=== PATIENT | female | born 1980 | race Two or more races ===

== ENCOUNTER 2017-04-07 08:12 | Emergency (ER) | payer MEDICAID ==
[~2017-04-07] VITALS: Ht 152.4 cm; Wt 61.2 kg
[2017-04-07 08:26] VITALS: BP 134/99
--- NOTE | 2017-04-07 08:38 | Emergency Room Report ---
History of Present Illness General Chief Complaint: Dyspnea/Respdistress Source: Patient Present Illness HPI Patient presents with complaints of right-sided lower chest pain Patient has a pleuritic component to this Is also pain to the right lower back just below the scapular region Patient poor several days ago after eating some food that she saw hair in, she had become nauseated and vomited she vomited several times Denies any diarrhea Denies any obvious cough Denies any dysuria frequency Pain is 8/10 localized to the right upper flank region Denies any fall or trauma denies any dysuria frequency Allergies: Coded Allergies: ASPIRIN (Verified Allergy, Unknown, 04/07/17) Patient History Past Medical History: see triage record Pertinent Family History: none Last Menstrual Period: IUD spotting Now: No Reviewed Nursing Documentation: PMH: Agreed, PSxH: Agreed Nursing Documentation-PMH Past Medical History: No Stated History Review of Systems All Other Systems: negative except mentioned in HPI Physical Exam Vital Signs Date Time Temp Pulse Resp B/P Pulse Ox O2 Delivery O2 Flow Rate FiO2 04/07/17 08:16 99.0 117 20 121/81 96 Room Air Sp02 EP Interpretation: reviewed, normal General Appearance: mild distress - Appears anxious Head: normocephalic, atraumatic Eyes: bilateral eye EOMI, bilateral eye PERRL ENT: hearing grossly normal, normal pharynx, TMs + canals normal, uvula midline Neck: full range of motion, supple, no meningismus, no bony tend Respiratory: lungs clear, normal breath sounds, no rhonchi, no respiratory distress, no retraction, no accessory muscle use Cardiovascular #1: normal peripheral pulses, no edema, no gallop, no JVD, no murmur, tachycardia Gastrointestinal: normal bowel sounds, non tender, soft, no mass, no organomegaly, non-distended, no guarding, no hernia, no pulsatile mass, no rebound Genitourinary: no CVA tenderness Musculoskeletal: normal inspection Neurologic: oriented x3, responsive, 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, motor strength/ tone normal, sensory intact Psychiatric: mood/affect normal Skin: normal color, no rash, warm/dry, palpation normal Lymphatic: normal inspection, no adenopathy Medical Decision Making Diagnostic Impression: Primary Impression: Pleurisy Additional Impression: Flank pain ER Course Patient is a fairly complex patient with multiple differential to consideration including but not limited to cardiac cardiopulmonary and vascular emergencies Given the patient's presentation complaints Blood work and imaging was initiated There is consideration for pleuritic discomfort alongside referred pain and peritoneal-type complaints Patient's blood work is appropriate, d-dimer was mildly elevated therefore CT imaging was initiated ED chest was negative CT abdomen and pelvis was also negative patient has done significantly better heart rate at this time has stabilized Patient observed for multiple hours in the emergency room continues to do better in a stable for close outpatient followup Labs reviewed CBC normal Chemistry normal D-dimer elevated at over 600 Coagulation to be negative UA 5 red blood cells Rhythm Strip Diag. Results EP Interpretation: yes Rate: 110 Rhythm: no PVC's, no ectopy, other - sinus tach Chest X-Ray Diagnostic Results EP Interpretation: Yes Findings: no consolidation, no effusion, no pneumothorax Number of Views: 1 CT/MRI/US Diagnostic Results CT/MRI/US Diagnostic Results : Impression CT chest no acute disease CT abdomen pelvis no acute disease Last Vital Signs Date Time Temp Pulse Resp B/P Pulse Ox O2 Delivery O2 Flow Rate FiO2 04/07/17 08:26 90 15 Room Air 04/07/17 08:26 134/99 97 04/07/17 08:16 99.0 Status: improved Disposition: HOME, SELF-CARE Condition: Improved Scripts Acetaminophen With Codeine (T#3) (TYLENOL #3 TAB*) Y Tab 1 TAB ORAL Q8H Y for For Pain, #12 TAB Prov: BRANNON COPPOLA D.O. 04/07/17 Ondansetron Odt* (ZOFRAN ODT*) 4 Mg Tab.rapdis 4 MG ORAL Q6H Y for Nausea & Vomiting, #12 TAB 0 Refills Prov: BRANNON COPPOLA D.O. 04/07/17 Referrals: NOT CHOSEN [facility]/,REFERRING (PCP) Additional Instructions: Patient is provided with the discharge instructions notified to follow up with primary doctor in the next 2-3 days otherwise return to the er with any worsening symptoms. Please note that this report is being documented using Lift technology. This can lead to erroneous entry secondary to incorrect interpretation by the dictating instrument. BRANNON COPPOLA D.O. Apr 07, 2017 08:38
[2017-04-07] MEDS ORDERED: Ketorolac 30mg Inj IV ONE (08:45)
[2017-04-07 09:24] LABS: TROPONIN I < 0.30 ng/mL (<=0.30)
[2017-04-07 09:28] LABS: ALANINE AMINOTRANSFERASE 16 U/L (3-33); ALBUMIN/GLOBULIN RATIO 1.4 (1.0-2.7); ANION GAP 15 (5-15); ASPARTATE AMINO TRANSFERASE 15 U/L (5-40); CALCIUM 8.9 mg/dL (8.6-10.2); CARBON DIOXIDE 23 mEQ/L (20-30); CHLORIDE 99 mEQ/L (98-107); CREATININE 0.7 mg/dL (0.5-0.9); GLOMERULAR FILTRATION RATE > 60 mL/min (>60); HEMOLYSIS 17; LIPASE 17 U/L (< 60); SODIUM 137 mEQ/L (135-145); TOTAL PROTEIN 7.2 g/dL (6.6-8.7)
[2017-04-07 09:30] LABS: APPEARANCE,URINE CLEAR; KETONES,URINE NEGATIVE (NEGATIVE); LEUKOCYTE ESTERASE ,URINE NEGATIVE (NEGATIVE); NITRITE,URINE NEGATIVE (NEGATIVE); PH,URINE 5 (4.5-8.0); PROTEIN,URINE NEGATIVE (NEGATIVE); UROBILINOGEN,URINE NORMAL MG/DL (0.0-1.0)
[2017-04-07 09:38] LABS: CKMB < 1.5 ng/mL (< 3.8)
[2017-04-07 09:43] LABS: BASOPHILS % (AUTO) 0.2 % (0.0-2.0); EOSINOPHILS % (AUTO) 0.3 % (0.0-3.0); LYMPHOCYTES % (AUTO) 11.3 % (20.0-45.0); MEAN CORPUSCULAR HEMOGLOBIN 31.7 PG (27.0-31.0); MEAN CORPUSCULAR HGB CONC 33.9 G/DL (32.0-36.0); MEAN CORPUSCULAR VOLUME 94 FL (80-99); MEAN PLATELET VOLUME 6.6 FL (6.5-10.1); MONOCYTES % (AUTO) 5.1 % (1.0-10.0); NEUTROPHILS % (AUTO) 83.1 % (45.0-75.0); PLATELET COUNT 235 K/UL (150-450); RED CELL DISTRIBUTION WIDTH 11.9 % (11.6-14.8); WHITE BLOOD COUNT 8.3 K/UL (4.8-10.8)
[2017-04-07 09:45] LABS: SQUAMOUS EPITHELIAL CELL,UR OCCASIONAL /LPF (NONE/OCC); WBC,URINE 0 /HPF (0 - 2)
[2017-04-07 10:22] VITALS: BP 117/81
[2017-04-07] MEDS ORDERED: Morphine Sulfate 4mg/ml Inj IVP ONE (10:45)
--- NOTE | 2017-04-07 11:17 | Diagnostic Imaging Report ---
Indication: Chest pain Technique: Continuous helical transaxial imaging of the chest was obtained from the thoracic inlet to the upper abdomen during rapid intravenous contrast administration. Arterial phase of enhancement obtained. Coronal 2-D reformats were also obtained and maximum intensity projection images in multiple planes. Study obtained in a Siemens sensation [address] Total Dose length Product (DLP): [address] Dose Index Volume (CTDIvol): 13, 13, 29, 14 mGy Comparison: None Findings: The pulmonary artery is well opacified and shows no filling defects. The lungs are clear. There is no adenopathy, pleural or pericardial effusions are identified. The aortic dissection or aneurysm identified within the chest. Visualized part of the upper abdomen is unremarkable. Impression: Negative CTA of the chest The CT scanner at [facility] is accredited by the [employer] and the scans are performed using dose optimization techniques as appropriate to a performed exam including Automatic Exposure control.
--- NOTE | 2017-04-07 11:24 | Diagnostic Imaging Report ---
Indication: Abdominal pain Technique: Continuous helical transaxial imaging of the abdomen and pelvis was obtained from the lung bases to the pubic symphysis during intravenous contrast administration. Coronal 2-D reformats were also obtained. Study obtained in a Siemens sensation [address] Total Dose length Product (DLP): Refer CTA mGycm CT Dose Index Volume (CTDIvol): Refer CTA mGy Comparison: None Findings: The liver, spleen, pancreas, kidneys and adrenal glands, gallbladder appear unremarkable. There is no hydronephrosis. At the time of the scan contrast is excreted within the collecting systems. This precludes identification of any small stones that may be nonobstructive within the collecting system. Intrauterine device is present. The urinary bladder is unremarkable. There is a small amount of free fluid in the pelvis. The appendix is seen and appears normal. Impression: No acute findings in the abdomen or pelvis. Intrauterine device The CT scanner at [facility] is accredited by the [employer] and the scans are performed using dose optimization techniques as appropriate to a performed exam including Automatic Exposure control.
[2017-04-07 11:37] VITALS: BP 115/78
--- NOTE | 2017-04-07 11:55 | Diagnostic Imaging Report ---
Indication: Chest Pain Comparison: None A single view chest radiograph was obtained. Findings: Cardiomediastinal appearance is within normal limits for age. Pulmonary vascularity is appropriate. The diaphragmatic contour is smooth and costophrenic angles are sharp. No pleural effusions are identified. The bones are unremarkable. Impression: No acute findings
[2017-04-07] MEDS ORDERED: ZOFRAN ODT4 MG ORAL (12:13)
[2017-04-07] MEDS ORDERED: ACETAMINOPHEN-1 EAC1 ORAL (12:13)
[2017-04-07 12:20] VITALS: BP 115/70
== END 2017-04-07 12:20 | disposition home or self-care (01) ==
LOC: EMR 08:30
DX: R07.9 Chest pain, unspecified (principal); M54.5 Low back pain; Z88.0 Allergy status to penicillin; Z97.5 Presence of (intrauterine) contraceptive device
CPT/HCPCS: 36415; 71010; 71275; 74177; 80053; 81003; 81025; 82550; 82553; 83690; 84484; 85025; 85379; 93005; 96360; 96361; 96374; 96375; 99284; J1885; J2270; J2405; Q9967

== ENCOUNTER 2017-08-19 05:54 | Emergency (ER) | payer MEDICAID, OTHER ==
[~2017-08-19] VITALS: Ht 152.4 cm; Wt 61.2 kg
[~2017-08-19 05:54] MED LIST: ACETAMINOPHEN-1 EAC1 ORAL; ZOFRAN ODT4 MG ORAL
[2017-08-19 06:39] LABS: BASOPHILS % (AUTO) 0.9 % (0.0-2.0); EOSINOPHILS % (AUTO) 1.4 % (0.0-3.0); KETONES,URINE NEGATIVE (NEGATIVE); LEUKOCYTE ESTERASE ,URINE 1+ (NEGATIVE); LYMPHOCYTES % (AUTO) 43.1 % (20.0-45.0); MEAN CORPUSCULAR HEMOGLOBIN 32.7 PG (27.0-31.0); MEAN CORPUSCULAR HGB CONC 33.9 G/DL (32.0-36.0); MEAN CORPUSCULAR VOLUME 96 FL (80-99); MEAN PLATELET VOLUME 7.4 FL (6.5-10.1); MONOCYTES % (AUTO) 7.5 % (1.0-10.0); NEUTROPHILS % (AUTO) 47.2 % (45.0-75.0); NITRITE,URINE NEGATIVE (NEGATIVE); PH,URINE 6 (4.5-8.0); PLATELET COUNT 275 K/UL (150-450); PROTEIN,URINE NEGATIVE (NEGATIVE); RED BLOOD COUNT 4.77 M/UL (4.20-5.40); RED CELL DISTRIBUTION WIDTH 11.4 % (11.6-14.8); UROBILINOGEN,URINE NORMAL MG/DL (0.0-1.0); WHITE BLOOD COUNT 8.4 K/UL (4.8-10.8)
[2017-08-19 06:45] LABS: APPEARANCE,URINE CLEAR; BACTERIA,URINE FEW /HPF; RBC,URINE 0-2 /HPF (0 - 2); SQUAMOUS EPITHELIAL CELL,UR FEW /LPF (NONE/OCC); WBC,URINE 0-2 /HPF (0 - 2)
[2017-08-19] MEDS ORDERED: Morphine Sulfate 2mg/ml Inj IVP ONE (06:45)
[2017-08-19 06:57] LABS: ALANINE AMINOTRANSFERASE 20 U/L (12-78); ALBUMIN/GLOBULIN RATIO 1.2 (1.0-2.7); ANION GAP 8 (5-15); ASPARTATE AMINO TRANSFERASE 11 U/L (15-37); CALCIUM 9.5 MG/DL (8.5-10.1); CARBON DIOXIDE 25 MMOL/L (21-32); CHLORIDE 101 MMOL/L (98-107); CREATININE 0.7 MG/DL (0.55-1.30); GLOMERULAR FILTRATION RATE > 60 mL/min (>60); LIPASE 140 U/L (73-393); SODIUM 134 MMOL/L (136-145); TOTAL PROTEIN 7.7 G/DL (6.4-8.2)
[2017-08-19 07:07] VITALS: BP 119/82
--- NOTE | 2017-08-19 07:32 | Emergency Room Report ---
History of Present Illness General Chief Complaint: Abdominal Pain Source: Patient Present Illness HPI 37-year-old female presents ED complaining of abdominal pain started approximately one hour prior to arrival. Sudden onset. 10 out of 10, sharp, nonradiating. Localized to lower abdomen. Patient has history of ovarian cysts and states this feels very similar to her previous pain. Denies vaginal bleeding or discharge. No other aggravating relieving factors. Denies any other associated symptoms Allergies: Coded Allergies: ASPIRIN (Verified Allergy, Unknown, 04/07/17) Patient History Past Medical History: none Past Surgical History: none Pertinent Family History: none Social History: Denies: smoking, alcohol use, drug use Last Menstrual Period: 08/02/17 Now: No - IUD : 4 Para: 3 Immunizations: UTD Reviewed Nursing Documentation: PMH: Agreed, PSxH: Agreed Nursing Documentation-PMH Past Medical History: No Stated History Review of Systems All Other Systems: negative except mentioned in HPI Physical Exam Vital Signs Date Time Temp Pulse Resp B/P (MAP) Pulse Ox O2 Delivery O2 Flow Rate FiO2 08/19/17 06:10 98.1 84 18 122/86 100 Room Air Sp02 EP Interpretation: reviewed, normal General Appearance: no apparent distress, alert, GCS 15, non-toxic Head: normocephalic, atraumatic Eyes: bilateral eye normal inspection, bilateral eye PERRL ENT: hearing grossly normal, normal pharynx, no angioedema, normal voice Neck: full range of motion, supple/symm/no masses Respiratory: chest non-tender, lungs clear, normal breath sounds, speaking full sentences Cardiovascular #1: regular rate, rhythm, no edema Cardiovascular #2: 2+ carotid (R), 2+ carotid (L), 2+ radial (R), 2+ radial (L) , 2+ dorsalis pedis (R), 2+ dorsalis pedis (L) Gastrointestinal: normal bowel sounds, soft, non-distended, no guarding, no rebound, tenderness - suprapubic Rectal: deferred Genitourinary: normal inspection, no CVA tenderness Musculoskeletal: back normal, gait/station normal, normal range of motion, non- tender Neurologic: alert, oriented x3, responsive, motor strength/tone normal, sensory intact, speech normal Psychiatric: judgement/insight normal, memory normal, mood/affect normal, no suicidal/homicidal ideation Reflexes: 3+ bicep (R), 3+ bicep (L), 3+ tricep (R), 3+ tricep (L), 3+ knee (R) , 3+ knee (L) Skin: normal color, no rash, warm/dry, well hydrated Lymphatic: no adenopathy Medical Decision Making Diagnostic Impression: Primary Impression: Ovarian cyst Qualified Codes: N83.201 - Unspecified ovarian cyst, right side ER Course Hospital Course 37-year-old F presents to ED with lower abdominal pain Differential diagnosis includes- cystitis, UTI, constipation, ovarian cyst/ torsion Clinical course Patient placed on stretcher. After initial history and physical I ordered labs , IV fluids, Pelvic US Labs - no leukocytosis, electrolytes ok, LFTs normal, UA unremarkable Pelvic US - R ovarian cyst, minimal free fluid. good flow to ovary noted on reassessment pain is improved. Patient can be safely discharged to home at this time I feel this is a highly complex case requiring extensive working including EKG/ Rhythm strip, Xray/CT/US, Blood/urine lab work, repeat exams while in ED, and administration of strong opiates/narcotics for pain control, admission to hospital or close patient follow up. Diagnosis - ovarian cyst Stable and discharged to home with Rx Motrin, Alexander. Followup with PMD. Return to ED if symptoms recur or worsen Labs Test 08/19/17 06:17 White Blood Count 8.4 K/UL (4.8-10.8) Red Blood Count 4.77 M/UL (4.20-5.40) Hemoglobin 15.6 G/DL (12.0-16.0) Hematocrit 46.0 % (37.0-47.0) Mean Corpuscular Volume 96 FL (80-99) Mean Corpuscular Hemoglobin 32.7 PG (27.0-31.0) Mean Corpuscular Hemoglobin Concent 33.9 G/DL (32.0-36.0) Red Cell Distribution Width 11.4 % (11.6-14.8) Platelet Count 275 K/UL (150-450) Mean Platelet Volume 7.4 FL (6.5-10.1) Neutrophils (%) (Auto) 47.2 % (45.0-75.0) Lymphocytes (%) (Auto) 43.1 % (20.0-45.0) Monocytes (%) (Auto) 7.5 % (1.0-10.0) Eosinophils (%) (Auto) 1.4 % (0.0-3.0) Basophils (%) (Auto) 0.9 % (0.0-2.0) Urine Color Pale yellow Urine Appearance Clear Urine pH 6 (4.5-8.0) Urine Specific [place] 1.025 (1.005-1.035) Urine Protein Negative (NEGATIVE) Urine Glucose (UA) Negative (NEGATIVE) Urine Ketones Negative (NEGATIVE) Urine Occult Blood 1+ (NEGATIVE) Urine Nitrite Negative (NEGATIVE) Urine Bilirubin Negative (NEGATIVE) Urine Urobilinogen Normal MG/DL (0.0-1.0) Urine Leukocyte Esterase 1+ (NEGATIVE) Urine RBC 0-2 /HPF (0 - 2) Urine WBC 0-2 /HPF (0 - 2) Urine Squamous Epithelial Cells Few /LPF (NONE/OCC) Urine Bacteria Few /HPF (NONE) Urine HCG, Qualitative Negative Sodium Level 134 MMOL/L (136-145) Potassium Level 4.0 MMOL/L (3.5-5.1) Chloride Level 101 MMOL/L (98-107) Carbon Dioxide Level 25 MMOL/L (21-32) Anion Gap 8 (5-15) Blood Urea Nitrogen 12 mg/dL (7-18) Creatinine 0.7 MG/DL (0.55-1.30) Estimat Glomerular Filtration Rate > 60 mL/min (>60) Glucose Level 96 MG/DL (74-106) Calcium Level 9.5 MG/DL (8.5-10.1) Total Bilirubin 0.3 MG/DL (0.2-1.0) Aspartate Amino Transf (AST/SGOT) 11 U/L (15-37) Alanine Aminotransferase (ALT/SGPT) 20 U/L (12-78) Alkaline Phosphatase 50 U/L (46-116) Total Protein 7.7 G/DL (6.4-8.2) Albumin 4.2 G/DL (3.4-5.0) Globulin 3.5 g/dL Albumin/Globulin Ratio 1.2 (1.0-2.7) Lipase 140 U/L (73-393) CT/MRI/US Diagnostic Results CT/MRI/US Diagnostic Results : Imaging Test Ordered: Pelvic US Impression R ovarian cyst, minimal free fluid Last Vital Signs Date Time Temp Pulse Resp B/P (MAP) Pulse Ox O2 Delivery O2 Flow Rate FiO2 08/19/17 07:07 98.0 74 22 119/82 99 Room Air Status: improved Disposition: HOME, SELF-CARE Condition: Stable Scripts Hydrocodone Bit/Acetaminophen 5-325* (NORCO 5-325*) 1 Each Tablet 1 TAB ORAL Q6H Y for For Pain, #10 TAB 0 Refills Prov: TRE WILSON M.D. 08/19/17 Ibuprofen* (MOTRIN*) 600 Mg Tablet 600 MG ORAL Q8H Y for For Pain, #30 TAB 0 Refills Prov: TRE WILSON M.D. 08/19/17 Referrals: [employer] [facility] E[facility]EN FRITZ (PCP) TRE WILSON M.D. Aug 19, 2017 07:32
[2017-08-19] MEDS ORDERED: Morphine Sulfate 4mg/ml Inj IVP ONE (09:00)
[2017-08-19 09:07] VITALS: BP 120/70
[2017-08-19] MEDS ORDERED: NORCO 5-325 TA1 EACH ORAL (09:15)
[2017-08-19] MEDS ORDERED: IBUPROFEN600 MG ORAL (09:15)
[2017-08-19 09:20] VITALS: BP 120/70
--- NOTE | 2017-08-19 10:21 | Diagnostic Imaging Report ---
Indication: Pain, history of ovarian cyst Comparison: None Findings: Ultrasound evaluation of pelvis was obtained via transabdominal and endovaginal approach. The uterus is normal in size measuring 9.7 cm in length by 4.0 cm AP by 5.5 cm in transverse dimension. Myometrium is homogeneous. Endometrial stripe is normal at 3 mm. No fluid in the endometrial canal. Uterine IUD is noted within the endometrial canal. A 10 mm x 12 mm nabothian cyst is seen in the cervical region. Left ovary appears normal. Normal blood flow. A few follicles are noted. Right ovary contains a 3.2 x 2.6 cm cyst with some septations. Right ovary has normal blood flow. No free fluid or adnexal masses. Impression: Normal uterus. An IUD is noted within the endometrial canal. 12 mm nabothian cyst 3.2 x 2.6 cm complex cyst in the right ovary. Consider followup ultrasound in 6 weeks to assess for resolution. Normal left ovary No free fluid or adnexal masses.
== END 2017-08-19 09:29 | disposition home or self-care (01) ==
LOC: EMR 06:25
DX: N83.291 Other ovarian cyst, right side (principal); N88.8 Other specified noninflammatory disorders of cervix uteri; Z88.6 Allergy status to analgesic agent
CPT/HCPCS: 36415; 76830; 76856; 80053; 81003; 81025; 83690; 85025; 96361; 96374; 96375; 99284; J2270; J2405

== ENCOUNTER 2019-04-09 09:01 | Emergency (ER) | payer MEDICAID, OTHER ==
[~2019-04-09] VITALS: Ht 152.4 cm; Wt 67.6 kg
[~2019-04-09 09:01] MED LIST changes: +IBUPROFEN600 MG ORAL; +NORCO 5-325 TA1 EACH ORAL
[2019-04-09] MEDS ORDERED: NKM (09:14)
--- NOTE | 2019-04-09 09:20 | NUR ---
ED Nurse Note: PT WALKED IN TO ER TODAY FROM HOME. AOX4. PT C/O UPPER ABDOMINAL PAIN, 06/15, RADIATING TO BILATERAL LOWER BACK X THIS AM. PT ALSO C/O NAUSEA AND 2 EPISODES OF DIARRHEA X THIS AM. PT DENIES VOMITING. PT DENIES ANY DIFFICULTY URINATING, PAINFUL URINATION, OR BURNING SENSATION WHILE URINATING. ACTIVE BOWEL SOUNDS IN ALL QUADRANTS. ABDOMEN NONDISTENDED AND NONTENDER TO PALPATION.
--- NOTE | 2019-04-09 09:20 | NUR ---
Note diana in EDM - 04/09/19 at 0925 by MAGEN ED Nurse Note: PT WALKED IN TO ER TODAY FROM HOME. AOX4. PT C/O UPPER ABDOMINAL PAIN, 8, RADIATING TO BILATERAL LOWER BACK X THIS AM. PT ALSO C/O NAUSEA AND 2 EPISODES OF DIARRHEA X THIS AM. PT DENIES VOMITING. PT DENIES ANY DIFFICULTY URINATING, PAINFUL URINATION, OR BURNING SENSATION WHILE URINATING.
[2019-04-09 09:23] VITALS: BP 118/82
[2019-04-09 10:23] LABS: BASOPHILS % (AUTO) 1.2 % (0.0-2.0); EOSINOPHILS % (AUTO) 2.3 % (0.0-3.0); HEMATOCRIT 42.4 % (37.0-47.0); HEMOGLOBIN 14.4 G/DL (12.0-16.0); MEAN CORPUSCULAR VOLUME 90 FL (80-99); MONOCYTES % (AUTO) 6.4 % (1.0-10.0); NEUTROPHILS % (AUTO) 55.2 % (45.0-75.0); PLATELET COUNT 264 K/UL (150-450); RED BLOOD COUNT 4.73 M/UL (4.20-5.40); RED CELL DISTRIBUTION WIDTH 11.7 % (11.6-14.8); WHITE BLOOD COUNT 10.8 K/UL (4.8-10.8)
[2019-04-09 10:34] LABS: ANION GAP 8 mmol/L (5-15); APPEARANCE,URINE CLEAR; BILIRUBIN, URINE NEGATIVE (NEGATIVE); BLOOD UREA NITROGEN 10 mg/dL (7-18); CALCIUM 8.8 MG/DL (8.5-10.1); CARBON DIOXIDE 25 MMOL/L (21-32); CHLORIDE 104 MMOL/L (98-107); COLOR,URINE PALE YELLOW; CREATININE 0.7 MG/DL (0.55-1.30); GLUCOSE, URINE (UA) NEGATIVE (NEGATIVE); KETONES,URINE NEGATIVE (NEGATIVE); LEUKOCYTE ESTERASE ,URINE 1+ (NEGATIVE); NITRITE,URINE NEGATIVE (NEGATIVE); PH,URINE 5 (4.5-8.0); POTASSIUM 3.8 MMOL/L (3.5-5.1); PROTEIN,URINE NEGATIVE (NEGATIVE); SODIUM 137 MMOL/L (136-145); UROBILINOGEN,URINE NORMAL MG/DL (0.0-1.0)
[2019-04-09 10:39] LABS: ALANINE AMINOTRANSFERASE 25 U/L (12-78); ALBUMIN/GLOBULIN RATIO 1.1 (1.0-2.7); ALKALINE PHOSPHATASE 45 U/L (46-116); ASPARTATE AMINO TRANSFERASE 15 U/L (15-37); BILIRUBIN,TOTAL 0.3 MG/DL (0.2-1.0)
[2019-04-09] MEDS ORDERED: Capsaicin 0.075% Cream TOPIC ONE (11:45)
[2019-04-09] MEDS ORDERED: Morphine Sulfate 2mg/ml Inj(IV/IM USE ONLY) IVP ONE (11:45)
--- NOTE | 2019-04-09 12:07 | Emergency Room Report ---
History of Present Illness General Chief Complaint: Nausea, Vomiting, and Diarrhea Source: Patient Present Illness HPI This patient complains of diffuse abdominal pain with nausea and vomiting. The patient states she does have a history of acid reflux. She states her symptoms started early this morning. She states the symptoms are ongoing and relentless. She denies fever or chills. She denies dysuria or hematuria. She has had multiple episodes of diarrhea today. She states that she ate at a buffet last night for dinner. She did go with other people who are not ill. She has no other complaints. Allergies: Coded Allergies: ASPIRIN (Verified Allergy, Unknown, 04/07/17) Patient History Past Medical History: see triage record, GERD, other - Gastritis Social History: Reports: alcohol use - Occassional, drug use - THC; Denies: smoking Last Menstrual Period: IUD Reviewed Nursing Documentation: PMH: Agreed; PSxH: Agreed Nursing Documentation-PMH Hx Gastrointestinal Problems: Yes - gastritis Review of Systems All Other Systems: negative except mentioned in HPI Physical Exam Vital Signs Date Time Temp Pulse Resp B/P (MAP) Pulse Ox O2 Delivery O2 Flow Rate FiO2 04/09/19 09:08 98.1 84 19 115/81 (92) 98 Room Air Sp02 EP Interpretation: reviewed, normal General Appearance: no apparent distress, alert, GCS 15, non-toxic Head: normocephalic, atraumatic Eyes: bilateral eye normal inspection, bilateral eye PERRL ENT: hearing grossly normal, normal pharynx, no angioedema, normal voice Neck: full range of motion, supple/symm/no masses Respiratory: chest non-tender, lungs clear, normal breath sounds, no respiratory distress, no retraction, no accessory muscle use, speaking full sentences Cardiovascular #1: regular rate, rhythm, no edema Gastrointestinal: normal bowel sounds, soft, non-distended, no guarding, no rebound, tenderness - Diffusely TTP Rectal: deferred Musculoskeletal: back normal, gait/station normal, normal range of motion, non- tender Neurologic: alert, oriented x3, responsive, motor strength/tone normal, sensory intact, speech normal Psychiatric: judgement/insight normal, memory normal, mood/affect normal, no suicidal/homicidal ideation Skin: normal color, no rash, warm/dry, well hydrated Medical Decision Making Diagnostic Impression: Primary Impression: Nausea, vomiting, and diarrhea ER Course This patient has a clinical presentation 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 The location of the pain and history and physical examination is consistent with this. I considered other concerning differentials, to include appendicitis, cholelithiasis, cholecystitis, pancreatitis, perforated viscus, aortic aneurysm, and pyelonephritis to name a few. However, laboratory workup in combination with medical and surgical history and physical exam makes these unlikely at this time. I did educate the patient on close return precautions and followup instructions. Laboratory Tests Test 04/09/19 09:54 White Blood Count 10.8 K/UL (4.8-10.8) Red Blood Count 4.73 M/UL (4.20-5.40) Hemoglobin 14.4 G/DL (12.0-16.0) Hematocrit 42.4 % (37.0-47.0) Mean Corpuscular Volume 90 FL (80-99) Mean Corpuscular Hemoglobin 30.5 PG (27.0-31.0) Mean Corpuscular Hemoglobin Concent 34.0 G/DL (32.0-36.0) Red Cell Distribution Width 11.7 % (11.6-14.8) Platelet Count 264 K/UL (150-450) Mean Platelet Volume 6.3 FL (6.5-10.1) L Neutrophils (%) (Auto) 55.2 % (45.0-75.0) Lymphocytes (%) (Auto) 35.0 % (20.0-45.0) Monocytes (%) (Auto) 6.4 % (1.0-10.0) Eosinophils (%) (Auto) 2.3 % (0.0-3.0) Basophils (%) (Auto) 1.2 % (0.0-2.0) Urine Color Pale yellow Urine Appearance Clear Urine pH 5 (4.5-8.0) Urine Specific [place] 1.025 (1.005-1.035) Urine Protein Negative (NEGATIVE) Urine Glucose (UA) Negative (NEGATIVE) Urine Ketones Negative (NEGATIVE) Urine Blood 1+ (NEGATIVE) H Urine Nitrite Negative (NEGATIVE) Urine Bilirubin Negative (NEGATIVE) Urine Urobilinogen Normal MG/DL (0.0-1.0) Urine Leukocyte Esterase 1+ (NEGATIVE) H Urine RBC 2-4 /HPF (0 - 2) H Urine WBC 2-4 /HPF (0 - 2) Urine Squamous Epithelial Cells Few /LPF (NONE/OCC) Urine Uric Acid Crystals Moderate /LPF (NONE) H Urine Bacteria Few /HPF (NONE) Urine HCG, Qualitative Negative (NEGATIVE) Sodium Level 137 MMOL/L (136-145) Potassium Level 3.8 MMOL/L (3.5-5.1) Chloride Level 104 MMOL/L (98-107) Carbon Dioxide Level 25 MMOL/L (21-32) Anion Gap 8 mmol/L (5-15) Blood Urea Nitrogen 10 mg/dL (7-18) Creatinine 0.7 MG/DL (0.55-1.30) Estimate Glomerular Filtration Rate > 60 mL/min (>60) Glucose Level 92 MG/DL (74-106) Calcium Level 8.8 MG/DL (8.5-10.1) Total Bilirubin 0.3 MG/DL (0.2-1.0) Aspartate Amino Transferase (AST) 15 U/L (15-37) Alanine Aminotransferase (ALT) 25 U/L (12-78) Alkaline Phosphatase 45 U/L (46-116) L Total Protein 7.5 G/DL (6.4-8.2) Albumin 4.0 G/DL (3.4-5.0) Globulin 3.5 g/dL Albumin/Globulin Ratio 1.1 (1.0-2.7) Lipase 93 U/L (73-393) Urine Opiates Screen Negative (NEGATIVE) Urine Barbiturates Screen Negative (NEGATIVE) Phencyclidine (PCP) Screen Negative (NEGATIVE) Urine Amphetamines Screen Negative (NEGATIVE) Urine Benzodiazepines Screen Negative (NEGATIVE) Urine Cocaine Screen Negative (NEGATIVE) Urine Marijuana (THC) Screen Positive (NEGATIVE) H Last Vital Signs Date Time Temp Pulse Resp B/P (MAP) Pulse Ox O2 Delivery O2 Flow Rate FiO2 04/09/19 09:23 98.2 78 17 118/82 99 Room Air Status: improved Disposition: HOME, SELF-CARE Condition: Improved Referrals: NON PHYSICIAN (PCP) Brook Sheehan DO Apr 09, 2019 12:07
[2019-04-09 12:33] VITALS: BP 120/75
--- NOTE | 2019-04-09 12:34 | NUR ---
ER DISCHARGE NOTE: Patient is cleared to be discharged per ERMD, pt is aox4, on room air, with stable vital signs. pt was given dc and prescription instructions, pt was able to verbalize understanding, pt id band and iv site removed without complications. pt is able to ambulate with steady gait. pt took all belongings.
== END 2019-04-09 12:34 | disposition home or self-care (01) ==
LOC: EMR 09:30
DX: R11.2 Nausea with vomiting, unspecified (principal); R19.7 Diarrhea, unspecified; K21.9 Gastro-esophageal reflux disease without esophagitis; F12.90 Cannabis use, unspecified, uncomplicated; Z97.5 Presence of (intrauterine) contraceptive device
CPT/HCPCS: 36415; 80053; 80307; 81003; 81025; 83690; 85025; 96361; 96374; 96375; 99284; J2270; J2405; S0028

== ENCOUNTER 2019-07-11 09:15 | Emergency (ER) | payer MEDICAID ==
[~2019-07-11] VITALS: Ht 152.4 cm; Wt 54.4 kg
[~2019-07-11 09:15] MED LIST changes: +NKM
--- NOTE | 2019-07-11 09:25 | NUR ---
ED Nurse Note: Patient walked in to ER with a son from home due to flu like symptom started last night. Patient alert and oriented x4 and ambulatory. skin clean and intact. calm and cooperative. no acute distress noted at this time. pt reported occasional dry cough, headache 8/10.
[2019-07-11 09:33] VITALS: BP 122/85
[2019-07-11] MEDS ORDERED: ZYRTEC10 MG ORAL (09:41)
--- NOTE | 2019-07-11 09:41 | Emergency Room Report ---
History of Present Illness General Chief Complaint: Upper Respiratory Illness Source: Patient, Medical Record Present Illness HPI 39-year-old female presents with cough, congestion x3 days, patient states that she got sick from her son, no chest pain no shortness of breath no abdominal pain, she presents for evaluation with her son her symptoms are aggravated by URI, no alleviating factors, severity is mild, constant. Allergies: Coded Allergies: ASPIRIN (Verified Allergy, Unknown, 04/07/17) Patient History Past Medical History: see triage record Last Menstrual Period: IUD Reviewed Nursing Documentation: PMH: Agreed; PSxH: Agreed Nursing Documentation-PMH Past Medical History: No History, Except For Hx Gastrointestinal Problems: Yes - gastritis Review of Systems All Other Systems: negative except mentioned in HPI Physical Exam Vital Signs Date Time Temp Pulse Resp B/P (MAP) Pulse Ox O2 Delivery O2 Flow Rate FiO2 07/11/19 09:20 98.2 88 18 122/85 (97) 96 Room Air Sp02 EP Interpretation: reviewed, normal General Appearance: well appearing, no apparent distress, alert Head: normocephalic, atraumatic Eyes: bilateral eye PERRL, bilateral eye EOMI ENT: TMs + canals normal, uvula midline, moist mucus membranes, nasal congestion Neck: supple, thyroid normal, supple/symm/no masses Respiratory: lungs clear, no respiratory distress, no retraction, no accessory muscle use Cardiovascular #1: normal peripheral pulses, regular rate, rhythm, no edema, no gallop, no murmur Gastrointestinal: non tender, soft, no guarding, no rebound Musculoskeletal: normal inspection Neurologic: alert, oriented x3 Psychiatric: mood/affect normal Skin: no rash, warm/dry Medical Decision Making Diagnostic Impression: Primary Impression: Upper respiratory infection Qualified Codes: J06.9 - Acute upper respiratory infection, unspecified ER Course Patient with URI, symptomatic care Dispo home w/ return precautions Last Vital Signs Date Time Temp Pulse Resp B/P (MAP) Pulse Ox O2 Delivery O2 Flow Rate FiO2 07/11/19 09:33 88 18 Room Air 07/11/19 09:33 98.2 122/85 96 Disposition: HOME, SELF-CARE Condition: Stable Scripts Cetirizine Hcl* (ZYRTEC*) 10 Mg Tablet 10 MG ORAL DAILY, #30 TAB 0 Refills Prov: Castro Rey MD 07/11/19 Referrals: [facility] Abilio Marquez. [facility] Patient Instructions: Upper Respiratory Infection, Adult Additional Instructions: The patient was provided with discharge instructions, notified to follow-up with a primary care doctor and or specialist in the next 24-48 hours, and to return to the ED if they have worsening of their symptoms. Please note that this report is being documented using DRAGON technology. This can lead to erroneous entry secondary to incorrect interpretation by the dictating instrument. Castro Rey MD Jul 11, 2019 09:41
[2019-07-11] MEDS ORDERED: Acetaminophen 500mg (ES) tab ORAL ONE (09:45)
[2019-07-11 10:17] VITALS: BP 127/76
--- NOTE | 2019-07-11 10:18 | NUR ---
ED Nurse Note: Pt cleared by health care Provider for discharge. DC instructions/prescription was given and explained to pt and verbalized understanding of teachings. All medical deviecs such as ID band removed. Pt is AAO x4, ambulatory and left with all personal belongings.
== END 2019-07-11 10:20 | disposition home or self-care (01) ==
LOC: EMR 10:10
DX: J06.9 Acute upper respiratory infection, unspecified (principal); Z88.6 Allergy status to analgesic agent
CPT/HCPCS: 81025; 99282